=== PATIENT | female | born 1935 | race Caucasian/White ===

== ENCOUNTER 2017-07-30 14:45 | Outpatient (CLI) | payer MEDICARE ==
--- NOTE | 2017-07-30 16:08 | RAD ---
PA AND LATERAL CHEST: Date: 07/30/17 HISTORY: Dyspnea. COMPARISON: 10/24/16 study. FINDINGS: Heart size appears slightly enlarged. There are atherosclerotic changes of the aorta. It is mildly to rtuous. Lungs are clear of infiltrates. IMPRESSION: 1. Minimal cardiomegaly. 2. Osteoporosis and loss of vertebral body height of some of the lower thoracic vertebral bodies. 3. Overall stable exam. POS: [facility]
== END 2017-07-30 14:46 | disposition home or self-care (01) ==
LOC: RAD 14:45
PROVIDERS: ATTEND Internal Medicine Pulmonary Disease
DX: R06.00 Dyspnea, unspecified (principal); M81.0 Age-related osteoporosis without current pathological fracture
CPT/HCPCS: 71046

== ENCOUNTER 2019-01-19 11:36 | Outpatient (CLI) | payer MEDICARE ==
--- NOTE | 2019-01-19 11:56 | RAD ---
XR Chest Pa Lat @ [facility] HISTORY: Dyspnea COMPARISON: 01/07/2019, 01/04/2019 and 05/23/2018 studies. FINDINGS: Heart size is borderline. There are atherosclerotic changes of the aorta. Stable linear and nodular parenchymal change in the right mid and upper lung asif are again noted. IMPRESSION: Stable exam.
== END 2019-01-19 11:37 | disposition home or self-care (01) ==
LOC: RAD 11:36
PROVIDERS: ATTEND Internal Medicine Pulmonary Disease
DX: R06.00 Dyspnea, unspecified (principal)
CPT/HCPCS: 71046

== ENCOUNTER 2019-08-17 13:58 | Inpatient (IN) | payer MEDICARE ==
[~2019-08-17 13:58] MED LIST: Magnevist 469MG/ML 20 ML VIAL ONE
[2019-08-17] MEDS ORDERED: Dextrose 5% in Water 1,000 ML IV PRN (15:49)
[2019-08-17] MEDS ORDERED: Ondansetron ODT 4 MG TAB PO PRN (15:49)
[2019-08-17] MEDS ORDERED: hydrALAZINE 20 MG/ML VIAL SLOW IVP PRN (15:49)
[2019-08-17] MEDS ORDERED: Dextrose 50% Abboject 50 ML SYRINGE SLOW IVP PRN (15:49)
[2019-08-17] MEDS ORDERED: HumaLOG 300 UNITS/3 ML VIAL SC PRN (15:58)
[2019-08-17] MEDS ORDERED: Melatonin 3 MG TAB PO PRN (16:04)
[2019-08-17] MEDS ORDERED: hydrALAZINE 20 MG/ML VIAL ONE (16:11)
[2019-08-17] MEDS ORDERED: traMADol HCl 50 MG TAB PO PRN (16:12)
[2019-08-17] MEDS ORDERED: Acetaminophen 325 MG TAB PO SCH (16:15)
--- NOTE | 2019-08-17 17:34 | MRI ---
BRAIN MRI WITH AND WITHOUT CONTRAST: Date: 08/17/2019 HISTORY: Patient fell 4 days ago. Patient has an intraparenchymal hemorrhage. FINDINGS: There is associated hypointensity in the axial gradient echo sequence with regards to the intraparenc hymal hemorrhage in the right parietal region. There is associated intrinsic T1 heterogeneous hyperin tensity with T2 and FLAIR hyperintensity. There is heterogeneous restricted diffusion. Central arteri al flow-voids are maintained. With the exception of the region of hematoma, cortical bennett-white matter differentiation appears to b e preserved. There are scattered FLAIR and white matter hyperintensities due to chronic small vessel ischemic change. Overall, the degree of brain volume loss is in keeping with the patient's age. No hy drocephalus. There does appear to be subtle linear enhancement at the level of the hematoma which may represent po ssible normal cerebral vasculature. Adequate aeration of the sinuses and mastoid air cells. There is no pathologic enhancement of the brain parenchyma. There is no abnormal enhancement at the l evel of the hematoma. Underlying vascular lesion could easily be obscured for mass effect secondary t o parenchymal hematoma. IMPRESSION: 1. No pathologic enhancement of the brain parenchyma. 2. Resolving intraparenchymal hematoma in the right parietal lobe. No evidence of a definite underly ing vascular lesion. Repeat imaging after current hematoma resolves if clinically warranted. POS: [facility]
--- NOTE | 2019-08-17 18:08 | HP ---
REQUESTING PHYSICIAN: Dr. Rajeev Gonzalez. CONSULTING PHYSICIAN: Dr. Michael. ATTENDING PHYSICIAN: Dr. Kamara. HISTORY OF PRESENT ILLNESS: Ms. Garcia is 83-year-old female who presents to the ED via transfer from [place] with a chief complaint of cerebral contusion. The patient reports she tripped on her dog, fell on the right side her head, hit a concrete floor. She had a huge bump on her right frontal area. She did not have loss of consciousness. She was able to function okay after that. However, yesterday, the patient reports another episode of fall from a four step ladder and then she fell weakness of her left arm. 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 The patient also reports some bleeding from upper and lower extremities from skin abrasion after a fall yesterday. Upon arrival in the ED in our facility, the patient is alert and awake. GCS 15. Complained of headache and left upper extremity weakness. REVIEW OF SYSTEMS: Noncontributory except as per HPI. PAST MEDICAL HISTORY: Pertinent with hypertension. SURGICAL HISTORY: Bilateral knee replacements. SOCIAL HISTORY: The patient lives at home by herself. 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 The patient reports walking regularly every day a few miles a day. Denies drug use, denies smoking. The patient drinks every day, few drinks a day. PHYSICAL EXAMINATION: GENERAL: Currently the patient is lying in bed comfortable with no acute respiratory distress. The patient is alert and awake. GCS 15. Oriented x3. HEENT: There is skin abrasion of the right frontal area. No bleeding. Mild tenderness to palpation. Pupil 3 mm, equal bilaterally, reactive to light. NECK: Trachea midline, not tender to palpation. CHEST: Atraumatic, no bruising, not tender to palpation. LUNGS: Clear bilaterally. HEART: Regular rate and rhythm. ABDOMEN: Soft, nondistended. Bowel sounds active. No rebound. No guarding. EXTREMITIES: Left upper extremity weakness of the proximal area and care technician strength is normal. There are gross rash of the upper arm, stopped bleeding. There is forearm bruising. Gross sensory, the patient reports numbness of the left upper extremity, bilateral lower extremities and right upper extremity. Neurovascularly intact x3. NEUROLOGIC: Decreased sensation of left upper extremity. IMAGING: Initial workup show chest x-ray, no acute cardiopulmonary process. Pelvic x-ray, no fracture in the thigh. Brain CT scan, acute right hemispheric 2.5 cm contusion. LABORATORY DATA: White count 8.9, hemoglobin 14.9. Coagulation, INR 0.9. Chemistry: Sodium 141, potassium 4.2, creatinine 0.59, glucose 88. Urine is normal. ASSESSMENT: 1. Status post ground level fall. 2. Right cerebral contusion with left side weakness. 3. Soft tissue contusion of the left upper and left lower extremities and skin abrasion. 4. History of substance abuse, alcohol. 5. Hypertension. PLAN: The patient will be admitted to [facility] for pain control. Will be put on neuro check q.2 hours. Neurosurgery ordered MRI and repeat brain CT scan tomorrow. The patient will have a clear liquid diet for now. The patient will be put on alcohol withdrawal precaution. The patient was seen with Dr. Kamara at bedside. Job ID: [id number]
[2019-08-17] MEDS: Oxazepam 10 MG CAP PO SCH (20:09)
[2019-08-17] MEDS: Gabapentin 100 MG CAP PO SCH (20:10)
[2019-08-17] MEDS: hydrALAZINE 20 MG/ML VIAL SLOW IVP PRN (20:10)
[2019-08-17] MEDS: Senokot S 8.6-50 MG TAB PO SCH (20:10)
[2019-08-17 20:24] VITALS: BMI 22.5
--- NOTE | 2019-08-17 22:05 | CON ---
DATE OF CONSULTATION: HISTORY OF PRESENT ILLNESS: The patient is an 83-year-old female, who reports she is otherwise healthy other than a history of hypertension who presented as a transfer from [facility] for acute right-sided frontotemporal intracranial hemorrhage. The patient reports that last she had a mechanical fall after being tripped by her dog. She reports that she also had a fall yesterday and fall coming down off a ladder. She did not hit her head yesterday according to the patient. The patient reports that today she had some increased dizziness and some left upper extremity weakness, which prompted her visit to the [facility]. Upon arrival, she had a noncontrast CT head done, which is notable for an acute right frontotemporal intracranial hemorrhage, which radiologist feels it is consistent with contusional injury. The patient has signs of multiple contusions throughout the extremities and along the right forehead. She has minimal complaints at this time. 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 She denies history of any blood thinner use. PAST MEDICAL HISTORY: Hypertension. PAST SURGICAL HISTORY: Bilateral knee replacements. SOCIAL HISTORY: She lives at home alone. She does not smoke or use any drugs. She is a social drinker. ALLERGIES: SHE IS ALLERGIC TO SULFA. REVIEW OF SYSTEMS: Per HPI. PHYSICAL EXAMINATION: VITAL SIGNS: Blood pressure is 154/88, respirations 18, she is 98% on room air, temperature is 97.9, and pulse is 62. CONSTITUTIONAL: Awake, alert, in no acute distress. She is oriented x3. HEENT: Head; she has multiple abrasions along the right side of the face and forehead. Eyes; pupils are equal and reactive to light. Extraocular movements are intact. ENT; oral mucosa is pink, intact, and moist. She has normal voice. NECK: She has free active range of motion of the cervical spine. No meningismus or nuchal rigidity appreciated. RESPIRATORY: Symmetric chest expansion. No evidence of dyspnea. CARDIOVASCULAR: Regular rate and rhythm. MUSCULOSKELETAL: She has free active range of motion of all extremities. She is noted to have abrasions over both the bilateral upper and lower extremities. Peripheral pulses are intact. NEUROLOGIC: She is A and O x4. She is somewhat weak in the left upper extremity, particularly more over the proximal arm. She has good strength in the remainder of the extremities. ASSESSMENT AND PLAN: This is an 83-year-old female, who has had multiple recent falls, who had worsening dizziness today and some left upper extremity weakness and was found to have an acute right-sided frontotemporal intracranial hemorrhage. The radiologist feels this is likely contusional, however appearance is a bit atypical. She is somewhat hypertensive on arrival. We will work on getting this down with hypertensive medications, systolic blood pressure goal should be less than 150. We will evaluate her intracranial hemorrhage further with MRI of the brain with and without. We will follow these results closely. We will also monitor closely with q.2 neuro checks. I discussed this plan with Dr. Michael, who is in agreement. Job ID: [id number] MTDD
--- NOTE | 2019-08-18 01:24 | PRG ---
DATE OF SERVICE: 08/18/2019 SUBJECTIVE: The patient was admitted today status post reportedly having multiple falls over the last few days. She underwent evaluation, examination in [place], where it was noted that she had intracranial hemorrhage, at which time she was transferred to our facility for neurosurgical evaluation. Upon arrival, the patient reported left upper extremity weakness, but was otherwise doing well. At the time of my visit, the patient was awake, alert, conversant, and only complained of left upper extremity weakness. She stated her pain was controlled, though she was having some headache. PHYSICAL EXAMINATION: VITAL SIGNS: Stable. The patient is afebrile. The patient previously this afternoon was hypertensive, but is now 149/70. GENERAL: The patient is resting comfortably in bed. She is awake, alert, conversant, and appropriate. [place] Coma Scale is 15. HEENT: The patient has contusions to the right side of her forehead. Remainder of her HEENT is unremarkable. LUNGS: Clear to auscultation bilaterally. HEART: Regular rate and rhythm. ABDOMEN: Soft, flat, nontender with active bowel sounds. EXTREMITIES: Neurovascularly intact x4. Left upper extremity, the patient is tender to palpation to the left shoulder and humerus area. ASSESSMENT/PLAN: 1. Status post ground level fall with reported multiple falls over the previous few days. 2. Right cerebral contusion with left-sided weakness. 3. Soft-tissue contusion of left upper extremity, multiple skin abrasions. 4. History of substance abuse, alcohol. 5. History of hypertension. PLAN: Will be to continue supportive care. The patient currently has a repeat CT scheduled for 5 o'clock in the morning. We will also get shoulder and humerus x-rays at that time. Otherwise, we will continue with clear-liquid diet, serial exams, and discuss placement tomorrow after her exams. Job ID: [id number]
--- NOTE | 2019-08-18 07:07 | CT ---
PRELIMINARY REPORT/[facility]/EMERGENCY AFTER HOURS PROCEDURE: EXAM: CT Head, without Contrast DATE/ TIME: 08/18/2019, 2:25 AM INDICATION: Right frontotemporal contusion, follow-up TECHNIQUE: Axial CT imaging was performed through the head without intravenous administration of con trast. Exam was performed using one or more of the following dose reduction techniques: automated e xposure control, adjustment of the mA and/or kV according to patient size, or use of iterative recons truction technique. COMPARISON: CT Head 08/17/2019, 11:21 AM. FINDINGS: Focal hemorrhage (Hu = 59) measuring 2.9 x 1.6 cm is seen superiorly in the right hemisph ere at the junction of the frontoparietal brain. Hypoattenuation surrounding the hematoma is compati ble with a small amount of edema. The brain globally exhibits mild atrophy. There is no midline daylin ft. There is no hydrocephalus. Patchy periventricular white-matter hypoattenuation is seen; althoug h nonspecific this is most commonly related to the sequela of chronic small-vessel ischemia. Calcifi ed atheroma is seen within the cavernous portions of the internal carotid arteries compatible with in tracranial atherosclerotic vascular disease (ASVD). Imaging begins at the mid orbital level. Visual ized sinuses and mastoid air cells are clear. Soft tissue swelling in the right frontal and left pos terior parietal regions is seen. IMPRESSION: 1. Intraparenchymal hematoma within the right hemisphere with surrounding edema, as described. Find ings are statistically unchanged from the reference exam. 2. Extracranial soft tissue contusions. 3. Atrophy with chronic white-matter ischemic change in this 83-year-old with intracranial ASVD. ELECTRONICALLY SIGNED BY: Edmond Smith DO August 18, 2019 2:46:07 AM CDT This report is intended for review by the ordering physician only, in accordance of law. If you recei ve this report in error, please call [facility] at [phone]. FINAL REPORT EMERGENCY AFTER HOURS CT BRAIN WITHOUT CONTRAST: FINDINGS/IMPRESSION: I agree with the findings and impression given in the preliminary report per [facility] physici an. There is a stable parenchymal hemorrhage in the right frontal lobe. POS: [facility]
--- NOTE | 2019-08-18 07:55 | RAD ---
Exam:Left shoulder 3 views HISTORY: Fall. Pain. COMPARISON: None FINDINGS: Glenohumeral joint space is preserved. Mild degenerative change at the acromioclavicular vernon int space. No fracture or dislocation. Visualized left ribs and lung do not demonstrate posttraumatic change IMPRESSION: No fracture.
--- NOTE | 2019-08-18 07:56 | RAD ---
Exam:2 views left hip HISTORY: Fall. Pain. COMPARISON: None FINDINGS: No fracture, cortical irregularity or periosteal reaction. IMPRESSION: No fracture.
[2019-08-18] MEDS: Oxazepam 10 MG CAP PO SCH ×2 (08:48→20:01)
[2019-08-18] MEDS: Gabapentin 100 MG CAP PO SCH ×2 (08:49→20:01)
[2019-08-18] MEDS: Amlodipine 5 MG TAB PO SCH (08:49)
[2019-08-18] MEDS: Senokot S 8.6-50 MG TAB PO SCH ×2 (08:49→20:02)
[2019-08-18] MEDS: Polyethylene Glycol 3350 17 GM Packet PO SCH (08:50)
[2019-08-18] MEDS: Thiamine 100 MG TAB PO SCH (08:50)
[2019-08-18] MEDS: Folic Acid 1 MG TAB PO SCH (08:50)
[2019-08-18] MEDS ORDERED: Acetaminophen/Codeine 30-300mg Tablet PO PRN (09:30)
--- NOTE | 2019-08-18 10:56 | CON ---
DATE OF CONSULTATION: The patient was seen and examined. I agree with Daisy Farley's, evaluation on 08/17/2019. The patient is an 83-year-old woman, who has had several falls, most recently off the ladder and has sustained meaningful left-sided weakness particularly in the hand. CT and MRI have revealed a right frontal contusional hemorrhage in the region of the motor strip. MRI did not reveal any underlying lesion. IMPRESSION AND PLAN: The patient has a traumatic contusional hemorrhage causing left-sided motor deficit. This has been stable clinically and radiographically and she can be mobilized either dismissal or rehab. She will need ongoing occupational therapy and physical therapy. Repeat CT scan in 4 weeks is recommended and I would hold aspirin or any other anticoagulation until that time. Job ID: [id number]
[2019-08-18] MEDS: Acetaminophen 325 MG TAB PO SCH ×3 (12:50→20:02)
--- NOTE | 2019-08-18 13:44 | ULT ---
BILATERAL CAROTID DUPLEX ULTRASOUND: HISTORY: Multiple falls. Atherosclerotic vascular disease. TECHNIQUE: Arredondo scale ultrasound with color flow and spectral Doppler imaging of the extracranial carotid artery systems was performed bilaterally. There is plaque formation on either side. The peak systolic velocity in the right ICA measures 47 cm/s with an end-diastolic velocity of 11 cm/ s and a systolic ratio of 0.70. The peak systolic velocity in the left ICA measures 70 cm/s with an end-diastolic velocity of 20 cm/s and a systolic ratio of 0.96. Flow in both vertebral arteries remains antegrade. IMPRESSION: No evidence of hemodynamically significant stenosis. POS: [facility]
--- NOTE | 2019-08-18 14:14 | PRG ---
DATE OF SERVICE: 08/18/2019 SUBJECTIVE: Ms. Garcia is an 83-year-old otherwise highly functioning elderly woman who apparently has been falling over the last 6 months. According to family, the patient had fallen 7 times within the last 6 months. The patient denies any syncope, dyspnea, or chest pain. At this time, the patient apparently tripped on her dog and fell on her right side, striking her head. She denies any loss of consciousness. This incident occurred 2 days prior to this admission. However, the patient fell down again day before admission again without any loss of consciousness. She sustained soft tissue injuries, which were noticed by her caregiver who recommended evaluation in the emergency department. The patient was transported via ground EMS to [facility]. She arrives with a [place] Coma Scale of 15, complaining of headache and left upper extremity weakness. She otherwise moves all extremities and follows commands. Workup included CT scan of the brain, which revealed a 2.5-cm right parietal hemorrhagic contusion. The subsequent MRI of the brain confirmed the cerebral contusion. No evidence of neoplasm. The patient was admitted and has remained hemodynamically and neurologically stable. This morning, she denies any headaches. She has had intermittent nausea, but no emesis. She remains with a [place] Coma Scale of 15. Urinary output is adequate for the patient's age. OBJECTIVE: VITAL SIGNS: This morning include blood pressure 131/76, pulse 63, respiratory rate is 14, temperature 98 degrees Fahrenheit, and oxygen saturation 94% on room air. HEENT: Reveals superficial forehead abrasions. Otherwise, pupils equal, round, reactive to light and accommodation. She has no jugular venous distention noted. She has no cervical neck tenderness to palpation, active or passive range of motion. HEART: Reveals regular rate and rhythm. No murmurs or gallops auscultated. LUNGS: Clear to auscultation bilaterally. Breathing, regular and nonlabored. ABDOMEN: Soft, nontender, nondistended. EXTREMITIES: Reveal deep skin abrasions involving the left upper extremity as well as multiple superficial abrasions of the left greater than right lower extremity. NEUROLOGIC: Reveals no focal deficits present. MUSCULOSKELETAL: Reveals 5/5 muscle strength in right upper and bilateral lower extremities. Left upper extremity is 4/5. She has no sensory deficits present. DIAGNOSTIC STUDIES: Repeat CT scan of the brain this morning reveals a 2.9 x 1.6 cm right parietal hemorrhagic contusion with surrounding vasogenic edema. There is no midline shift present. IMPRESSION: 1. 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 2. Multiple recent falls, according to the patient's family, there is alcohol involved. However, we are uncertain as to any concomitant near syncopal etiology of these falls. PLAN: 1. Increase activity per Physical and Occupational Therapy. 2. We will obtain a duplex sonography of the carotid arteries as well as 2D echocardiography to rule out any cardiovascular disease. The patient will need inpatient rehabilitation post discharge from the hospital. Above findings and plan discussed with the patient who indicates understanding of information given. I have answered her questions. Job ID: [id number] MTDD
--- NOTE | 2019-08-19 00:31 | PRG ---
DATE OF SERVICE: 08/18/2019 SUBJECTIVE: The patient was seen during evening rounds. Awake, alert, in no distress, sitting up in the chair. The patient continues to tolerate a regular diet. The patient does have some bruising and pain to her left wrist and some decreased range of motion. The patient's hyperbaric technician strength is equal and strong. The patient was assisted back into the bed. OBJECTIVE: VITAL SIGNS: Blood pressure 122/84, temperature 97.9, pulse 68, respirations 16, SpO2 of 96% on room air. GENERAL: Elderly female, awake, alert, in no distress. LUNGS: Breathing is regular and nonlabored, no distress. ABDOMEN: Soft, nontender, nondistended. EXTREMITIES: Moves all extremities, multiple abrasions and skin tears to the left upper extremity and also right lower extremity. Distal pulses intact. Muscle strength 5/5 except for left upper extremity 4/5, left wrist pain and ecchymosis. NEUROLOGIC: No focal deficits. GCS 15. DIAGNOSTICS: 1. Carotid Doppler study; impression, no evidence of hemodynamically significant stenosis. 2. Echocardiogram; ejection fraction estimated at 55% to 60%, diastolic dysfunction, left atrium mildly dilated, mild mitral regurgitation present. Moderate aortic regurgitation. Mild tricuspid regurgitation. Mildly elevated pulmonary artery pressure. IMPRESSION: 1. Acute traumatic brain injury with right parietal hemorrhagic contusion and no neurologic deficit present. 2. Multiple recent falls. 3. Multiple skin abrasions and skin tears. 4. History of hypertension. 5. Alcohol abuse. PLAN: Increase activity per Physical and Occupational therapy. We will obtain a left wrist and elbow x-ray. Continue regular diet and pain regimen. The patient is pending placement to [facility]. My plan was discussed with the patient who agrees. Job ID: [id number]
[2019-08-19] MEDS: Acetaminophen 325 MG TAB PO SCH ×4 (04:56→20:23)
[2019-08-19 05:15] LABS: #Basophils 0.1 thou/uL (0.0-0.2); #Eosinphils 0.3 thou/uL (0.0-0.7); #Lymphocytes 2.3 thou/uL (1.20-3.40); #Monocytes 0.8 thou/uL (0.11-0.59); #Neutrophils 5.4 thou/uL (1.40-6.50); %Basophils 0.6 % (0.0-1.0); %Eosinophils 3.8 % (0.0-10.0); %Lymphocytes 25.7 % (21.0-51.0); %Monocytes 9.2 % (0.0-10.0); %Neutrophils 60.7 % (42.0-75.0); Hemoglobin 13.5 g/dL (12.0-16.0); Mean Corpuscular HGB CONC 31.7 g/dL (32.0-36.0); Mean Corpuscular Hemoglobin 32.7 pg (27.0-31.0); Mean Platelet Volume 6.6 fL (7.4-10.4); Platelet Count 273 thou/uL (130-400); RBC Distribution Width 12.2 % (11.5-14.5); Red Blood Cell (RBC) Count 4.11 mill/uL (4.20-5.40); White Blood Cell (WBC) Count 8.9 thou/uL (4.8-10.8)
[2019-08-19 05:36] LABS: Anion Gap 12 mmol/L (10-20); BUN (Urea Nitrogen) 12 mg/dL (9.8-20.1); Calc. Creatinine Clearance 62 mL/min (70-130); Calcium 8.4 mg/dL (7.8-10.44); Carbon Dioxide 21 mmol/L (23-31); Chloride 109 mmol/L (98-107); Estimated GFR-MDRD Greater than 90; Glucose 88 mg/dL (83-110); Phosphorus 4.2 mg/dL (2.3-4.7); Potassium 3.7 mmol/L (3.5-5.1); Sodium 138 mmol/L (136-145)
--- NOTE | 2019-08-19 07:21 | RAD ---
LEFT ELBOW 4 VIEWS: Date: 08/18/2019 HISTORY: Pain. COMPARISON: None. 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 No acute displaced fr acture or malalignment. No significant joint effusion. IMPRESSION: No acute osseous abnormality. POS: [facility]
--- NOTE | 2019-08-19 07:24 | RAD ---
LEFT WRIST 4 VIEWS: Date: 08/18/2019 HISTORY: Pain. COMPARISON: None. FINDINGS: On the lateral radiograph, there is a curvilinear calcification along the dorsal aspect of the distal radius. There is concern for a nondisplaced interarticular fracture of the radial styloid. High grade degenerative change of thumb carpometacarpal joint. There is scapholunate interval widenin g. There is a large wrist joint effusion. IMPRESSION: 1. Findings highly concerning for intra-articular fracture distal radius involving the radial styloi d process which is nondisplaced and extends to the scaphoid fossa. 2. Only seen on the lateral radiograph is a curvilinear calcification concerning for either an osseo us avulsion or ulnar styloid process versus a capsular avulsion. 3. Ossification of triangular fibrocartilage. 4. Chronic scapholunate ligament insufficiency with widening. POS: HOME
[2019-08-19] MEDS ORDERED: Potassium Chloride 20 MEQ TAB PO SCH (07:45)
[2019-08-19] MEDS: Polyethylene Glycol 3350 17 GM Packet PO SCH (07:58)
[2019-08-19] MEDS: Gabapentin 100 MG CAP PO SCH ×2 (07:59→20:23)
[2019-08-19] MEDS: Amlodipine 5 MG TAB PO SCH (07:59)
[2019-08-19] MEDS: Oxazepam 10 MG CAP PO SCH ×2 (07:59→20:23)
[2019-08-19] MEDS: Folic Acid 1 MG TAB PO SCH (07:59)
[2019-08-19] MEDS: Senokot S 8.6-50 MG TAB PO SCH ×2 (07:59→20:23)
[2019-08-19] MEDS: Thiamine 100 MG TAB PO SCH (07:59)
--- NOTE | 2019-08-19 10:55 | PRG ---
DATE OF SERVICE: 08/19/2019 SUBJECTIVE: The patient was seen this morning during rounds. Upon entering the room, the patient reported that her left upper extremity had significantly worsening function as well as sensation abilities. She reported she was very upset that she was not improving and actually getting worse. She is tolerating her diet and ambulating without difficulties, however, her motor sensation strength has greatly decreased from yesterday. She is not able to straighten her left upper extremity and has decreased automatic clipper and stripper strength of 3/5 from previous yesterday of 4/5. OBJECTIVE: VITAL SIGNS: Temperature 97.8, pulse 64, respirations 16, oxygen saturation 94% on room air, and blood pressure 159/74. GENERAL: Well-appearing elderly female, sitting up in bed with no signs of acute distress. PULMONARY: Equal chest rise and fall. Clear breath sounds bilaterally. No signs of acute respiratory distress. CARDIAC: Regular rate and rhythm. GI: Abdomen is soft, nontender, and nondistended. EXTREMITIES: 2+ pulses in all extremities. Gross motor and sensation intact to bilateral lower and right upper extremities. The patient has worsening decreased sensation in her left upper extremity extending from her shoulder down to her hand. She can feel deep touch, however, light sensation is more difficult. She has decreased range of motion in her shoulder. Left upper extremity strength is 3/5 from previous yesterday, 4/5. NEUROLOGIC: GCS is 15. The patient is oriented to person, place, time, and situation. Sensation, neuromuscular deficits in extremities. LABORATORY FINDINGS: White count 8.9, hemoglobin 13.5, hematocrit 43.4, and platelets 273. Sodium 138, potassium 3.7, chloride 109, bicarb 21, BUN 12, creatinine 0.59, and glucose 88. DIAGNOSTIC FINDINGS: X-ray of the left elbow demonstrates no acute osseous abnormalities. X-ray of the left wrist demonstrates finding highly concerning for intra-articular fracture distal radius involving the radial styloid process which is nondisplaced and extending into the scaphoid fossa only seen on the lateral radiograph is a curvilinear calcification concerning for either an osseous avulsion or an ulnar styloid process versus a capsular avulsion, ossification of triangular fibrocartilage, chronic scapholunate ligament insufficiency and with widening. ASSESSMENT: 1. Status post mechanical fall from fourth step of ladder. 2. Intraparenchymal hemorrhage of the right parietal lobe with left upper extremity worsening paresis and decreased sensation. 3. Abrasions to the left upper and lower extremity, status post wound care. 4. Left distal radius and ulnar fracture, nonoperative management. 5. History of hypertension and alcohol abuse. 6. Hypokalemia. PLAN: Continue current diet and pain regimen. Continue physical and occupational therapy. Continue Serax to prevent alcohol withdrawal. Continue home amlodipine for blood pressure control. After discussing with Dr. Kamara in Radiology, the worsening motor sensation in the left upper extremity is likely due to increased edema associated with the intraparenchymal hemorrhage in that parietal region, which is consistent with her dysfunction of the left upper extremity. Continue physical and occupational therapy, close management, close observation as well. The patient did receive also an echo and carotid ultrasound, which were unconcerning. We will also replace some potassium today. Orthopedic Surgery has evaluated the patient's left distal radius and ulnar fracture and recommend nonoperative management. This patient was seen and evaluated by Dr. Kamara and myself this morning during rounds. Job ID: [id number]
--- NOTE | 2019-08-19 13:22 | CON ---
DATE OF CONSULTATION: 08/19/2019 REQUESTING PHYSICIAN: Mohinder Kamara DO CONSULTING PHYSICIAN: Mandeep Ledbetter MD REASON FOR CONSULTATION: Possibility of left distal radius occult fracture. BRIEF CLINICAL HISTORY: Mary is an 83-year-old female, who was admitted by the Trauma team after she presented on August 16, after a fall from a ladder, which had followed a prior fall a couple of days later. She is a very independent 83-year-old lady[place] She presented to the emergency room in [place] with history of cerebral contusion and MRI of the brain was obtained, which demonstrated a right parietal lesion consistent with hematoma, and she was transferred to our facility for a neurosurgical evaluation. She had some weakness in the left upper extremity. Therefore, radiographs were obtained of the left wrist because she had some swelling there, but she did demonstrate essentially degenerative changes at the thumb MCP joint as well as osteoarthritic changes at the radiolunate joint as well. She has diminishment of joint space consistent with osteoarthritis and appropriate for age. Radiologist was concerned of a possible occult fracture in the distal radius and therefore our service was consulted for clinical examination. OBJECTIVE: Visual inspection of the left upper extremity demonstrates this lady has age-appropriate atrophy and significant bruises, which appear to be chronic on the dorsal forearm. She does have some swelling dorsally, which is nontender. She can supinate and pronate, but she has what appeared to be a neurological weakness of the left upper extremity. She has difficulty with the fine motor skills. Otherwise, no tenderness is reported with palpation along the distal radius both anteriorly and posteriorly. She can supinate, pronate, and wrist flexion-extension. She has no complaints of pain that is nonreproducible at the elbow or at the wrist. IMPRESSION: Osteoarthritis, left radioscaphoid joint space also metacarpophalangeal joint, left hand. Most of these changes noted on radiography are consistent with osteoarthritis. I do not see an occult fracture nor does clinical examination correlate to one. PLAN: At this point, we will sign off. No further intervention is required for the left upper extremity other than possibly a Neurology evaluation. No splinting or bracing is recommended at this point due to her delicate skin and re-consult as needed. Job ID: [id number]
--- NOTE | 2019-08-20 00:12 | PRG ---
DATE OF SERVICE: 08/19/2019 SUBJECTIVE: The patient was seen during evening rounds, awake, alert, in no distress sitting up in the chair. The patient states that she was able to walk with physical therapy, but feels like she is not progressing like she wants. The patient complains of less control and worsening function of her left upper extremity. The patient denies any pain at this time. The patient continues to tolerate a regular diet. OBJECTIVE: VITAL SIGNS: Temperature 97.4, pulse 64, respirations 16, SpO2 of 95% on room air, blood pressure 142/75. GENERAL: Well-appearing elderly female, sitting up in the chair, in no acute distress. PULMONARY: Respirations are even and nonlabored. EXTREMITIES: Moves all extremities. Distal pulses intact, ecchymosis to the left upper extremity, decreased sensation to the left upper extremity. NEUROLOGIC: GCS 15. ASSESSMENT: 1. Status post mechanical fall from the 4th step of a ladder. 2. Intraparenchymal hemorrhage of the right parietal lobe and left upper extremity, worsening paresis and decreased sensation. 3. Abrasions to the left upper arm and lower extremity, status post wound care. 4. Left distal radius and ulnar fracture, non operative management. 5. History of hypertension and alcohol abuse. 6. Hypokalemia. PLAN: Continue regular diet and pain regimen. Continue physical and occupational therapy. The patient is pending placement to [facility]. The plan was discussed with the patient who agrees. Job ID: [id number]
[2019-08-20] MEDS: Acetaminophen 325 MG TAB PO SCH ×2 (05:02→08:53)
[2019-08-20] MEDS: Polyethylene Glycol 3350 17 GM Packet PO SCH (07:51)
[2019-08-20] MEDS: Thiamine 100 MG TAB PO SCH (07:52)
[2019-08-20] MEDS: Senokot S 8.6-50 MG TAB PO SCH (07:52)
[2019-08-20] MEDS: Amlodipine 5 MG TAB PO SCH (07:52)
[2019-08-20] MEDS: Gabapentin 100 MG CAP PO SCH (07:52)
[2019-08-20] MEDS: Folic Acid 1 MG TAB PO SCH (07:52)
[2019-08-20] MEDS: Oxazepam 10 MG CAP PO SCH (07:52)
[2019-08-20] MEDS: hydrALAZINE 20 MG/ML VIAL SLOW IVP PRN (09:19)
[2019-08-20 12:20] VITALS: BP 109/67; TEMP 97.6
--- NOTE | 2019-08-20 16:35 | DIS ---
DATE OF ADMISSION: 08/17/2019 DATE OF DISCHARGE: 08/20/2019 ADMISSION DIAGNOSES: Mechanical fall from 4th step of a ladder, intraparenchymal hemorrhage of the right parietal lobe with left upper extremity paresis. DISCHARGE DIAGNOSES: Mechanical fall from 4th step of a ladder, intraparenchymal hemorrhage of the right parietal lobe with left upper extremity paresis and left distal radius and ulnar fracture. CONSULTING PHYSICIANS: Dr. Michael of Neurosurgery and Dr. Ledbetter of Orthopedic Surgery. PROCEDURES: None. HOSPITAL COURSE: The patient is an 83-year-old female, who presented to the emergency department after a mechanical fall from the 4th step of a ladder. The patient reported she had also fallen earlier in the week, ground level fall after the dog caused her to trip. Upon evaluation, she was found to have an intraparenchymal hemorrhage of the right parietal lobe with left upper extremity paresis. Dr. Michael of Neurosurgery was contacted, who completed an MRI of the brain and subsequently a repeat head CT, which demonstrated stable traumatic brain injury. The patient had persistent weakness of the left upper extremity. Furthermore, during her stay, her left upper extremity was imaged, which found a concern for left distal radius and ulnar fracture. Dr. Ledbetter of Orthopedic Surgery was consulted. They evaluated the patient. They reported a possible fracture at that location. They recommended conservative nonoperative management. They reported she does not need a splint. The patient worked with Physical and Occupational Therapy. She also received echo and carotid ultrasound, which demonstrated no significant dysfunction. She was discharged to [facility] for further physical, occupational, and speech-language pathology. The patient had abrasions to her left upper and lower extremity, for which Wound Care will see her. DISCHARGE DISPOSITION: [facility]. DISCHARGE CONDITION: Satisfactory. PHYSICAL EXAMINATION: VITAL SIGNS: Temperature 97.6, pulse 62, respirations 16, oxygen saturation 95% on room air, and blood pressure 176/76. GENERAL: Well-appearing elderly female, sitting up in bed with no signs of acute distress. PULMONARY: Equal chest rise and fall. Clear breath sounds bilaterally. No signs of acute respiratory distress. CARDIAC: Regular rate and rhythm. GASTROINTESTINAL: Soft, nontender, nondistended. EXTREMITIES: 2+ pulses in all extremities. Gross motor and sensation are intact in the bilateral lower and right upper extremity. She has decreased sensation and motor capability in her left upper extremity. She can feel deep sensation, but not light. Strength is about 3/5 in the left upper extremity. NEUROLOGIC: GCS is 15. DISCHARGE INSTRUCTIONS: The patient was discharged to [facility] swing bed. Activity as tolerated. Weightbearing as tolerated in all extremities. No splint needed for the left wrist. Regular diet. She will have PT, OT, speech-language pathology, and wound care. She received an incentive spirometer. DISCHARGE MEDICATIONS: Include, 1. Tylenol. 2. Tylenol 3. 3. Amlodipine. 4. Folic acid. 5. Gabapentin. 6. MiraLAX. 7. Senokot-S. 8. Thiamine. FOLLOWUP APPOINTMENTS: The patient has a followup appointment with Dr. Michael in 4 weeks. She is to complete a head CT before that followup. Hold all anticoagulation and aspirin. No followup is required for Dr. Ledbetter of Orthopedic Surgery. She can follow up with them p.r.n. No followup is indicated for Dr. Kamara in Trauma Clinic. This is a summary of the patient's hospitalization. For full details, please see her medical record in its entirety. This patient was seen and evaluated by Dr. Kamara and myself today at discharge. Job ID: [id number]
--- NOTE | 2019-08-21 09:56 | PQF ---
BR[place] POZO [place], [place] [id number] [facility] A [id number] CLINICAL DOCUMENTATION CLARIFICATION FORM: POST DISCHARGE Addendum to original discharge summary date: ____ Late entry note date: __ DATE:08/21/2019 ATTN: Elizabeth Ascencio Please exercise your independent, professional judgment in responding to the clarification form. Clinical indicators are provided on the bottom of this form for your review Please check appropriate box(s): [ X ] Traumatic Cerebral edema / Vasogenic edema [ ] Non-Traumatic Cerebral edema / Vasogenic edema [ ] Other diagnosis [ ] Unable to determine In addition, please specify: Present on Admission (POA): [ ] Yes [ ] No [ ] Unable to determine For continuity of documentation, please document condition throughout progress notes and discharge summary. Thank You. CLINICAL INDICATORS - SIGNS / SYMPTOMS / LABS GCS 15 CT brain impression: Intraparenchymal hematoma within the right hemisphere with surrounding edema H&P p1 08/16 Right cerebral contusion with left sided weakness H&P p1 08/16 Fall from ladder Consult p1 08/17 Dr Michael The pt has traumatic contusion hemorrhage causing left-sided motor deficit Consult p1 08/17 Dr Michael has sustained meaningful left-sided weakness particularly in the hand Consult p1 08/17 Dr Michaeltraumatic frontal hemorrhage RISK FACTORS H&P p1 08/16 83 year-old Female H&P p1 08/16 HTN H&P p1 08/16 history of substance abuse, alcohol H&P p1 08/16 Contusion of left upper and left lower extremities Consult p1 08/17 Dr Michaeltraumatic frontal hemorrhage H&P p1 08/16 s/p fall TREATMENTS: Brain MRI 08/16 CT brain 08/17 PT/OT 08/16 (This form is maintained as a part of the permanent medical record) 2014 [email or web address]. All Rights Reserved [email or web address]
== END 2019-08-20 15:04 | disposition swing bed (61) | DRG 86 ==
LOC: ERS 13:58 → SURG A 18:32
PROVIDERS: ADMIT Surgery; ATTEND Surgery
DX: S06.340A Traumatic hemorrhage of right cerebrum without loss of consciousness, initial encounter (principal); S52.502A Unspecified fracture of the lower end of left radius, initial encounter for closed fracture; S52.602A Unspecified fracture of lower end of left ulna, initial encounter for closed fracture; G83.24 Monoplegia of upper limb affecting left nondominant side; I10 Essential (primary) hypertension; Z96.653 Presence of artificial knee joint, bilateral; Z60.2 Problems related to living alone; S80.12XA Contusion of left lower leg, initial encounter; S40.022A Contusion of left upper arm, initial encounter; F10.10 Alcohol abuse, uncomplicated; E87.6 Hypokalemia; T14.8XXA Other injury of unspecified body region, initial encounter; M19.042 Primary osteoarthritis, left hand; R40.2362 Coma scale, best motor response, obeys commands, at arrival to emergency department; R40.2142 Coma scale, eyes open, spontaneous, at arrival to emergency department; R40.2252 Coma scale, best verbal response, oriented, at arrival to emergency department; Z88.2 Allergy status to sulfonamides; Z79.899 Other long term (current) drug therapy
CPT/HCPCS: 36415; 36416; 70450; 70553; 80048; 83735; 84100; 85025; 93306; 93880; 96374; A9579; G0390; J0360

== ENCOUNTER 2019-12-03 11:01 | Outpatient (CLI) | payer MEDICARE ==
--- NOTE | 2019-12-03 14:43 | PET ---
PET CT: 12/03/19 HISTORY: 84-year-old female with skin malignancy and mass in the right lung. TECHNIQUE: PET scan with CT attenuation correction was performed from the vertex through the feet following the intravenous administration of 10.6 millicuries of 15-fluorodeoxyglucose in the left antecubital fossa . COMPARISON: None. CORRELATION: CT scan of the chest dated 11/19/19. FINDINGS: No hypermetabolic activity is seen in the 2 cm right upper lobe lung nodule (SUV 1.7). No deena hypermetabolism is seen in the mediastinum, hilar regions, neck, left axilla, abdomen, pelvi s or mural regions. There is a 15 x 7 mm hypermetabolic right axillary lymph node with an SUV of 2.7. No hypermetabolic liver, adrenal, or skeletal lesions are seen. There is physiologic activity in the brain, heart, GI and tracts. The CT scan used for attenuation correction demonstrates no evidence of pleural effusions or ascites. There are postop changes of bilateral knee arthroplasties and colonic diverticulosis. IMPRESSION: 1. No evidence of hypermetabolic activity in the 2 cm right upper lobe lung nodule to suggest ma lignancy/metastatic disease. F/U CT scan is recommended in 3 months. 2. Nonspecific hypermetabolic right axillary lymph node. Possibility of metastatic disease andre ot be excluded. POS: TAO
== END 2019-12-03 11:02 | disposition home or self-care (01) ==
LOC: PET 11:01
PROVIDERS: ATTEND Family Medicine
DX: R91.8 Other nonspecific abnormal finding of lung field (principal); Z85.828 Personal history of other malignant neoplasm of skin
CPT/HCPCS: 78816; A9552

== ENCOUNTER 2020-01-07 12:54 | Outpatient (CLI) | payer MEDICARE ==
--- NOTE | 2020-01-07 13:31 | RAD ---
EXAM: Chest 2 views: HISTORY: Dyspnea COMPARISON: 11/13/2019 and PET/CT 12/03/2019 FINDINGS: There is a normal-sized cardiomediastinal silhouette. Scattered pulmonary nodules are seen in the rig ht lung. No acute osseous abnormality. IMPRESSION: Right-sided pulmonary nodules
== END 2020-01-07 12:55 | disposition home or self-care (01) ==
LOC: BICRAD 12:54
PROVIDERS: ATTEND Internal Medicine Pulmonary Disease
DX: R06.00 Dyspnea, unspecified (principal); R91.8 Other nonspecific abnormal finding of lung field
CPT/HCPCS: 71046

== ENCOUNTER 2020-06-20 14:13 | Emergency (ER) | payer MEDICARE ==
[2020-06-20 16:53] LABS: #Basophils 0.1 thou/uL (0.0-0.2); #Eosinphils 0.1 thou/uL (0.0-0.7); #Lymphocytes 2.9 thou/uL (1.20-3.40); #Monocytes 0.7 thou/uL (0.11-0.59); #Neutrophils 4.8 thou/uL (1.40-6.50); %Eosinophils 1.3 % (0.0-10.0); %Lymphocytes 33.9 % (21.0-51.0); %Monocytes 8.1 % (0.0-10.0); %Neutrophils 55.8 % (42.0-75.0); Hemoglobin 15.5 g/dL (12.0-16.0); Mean Corpuscular HGB CONC 34.1 g/dL (32.0-36.0); Mean Corpuscular Hemoglobin 34.2 pg (27.0-31.0); Mean Platelet Volume 6.1 fL (7.4-10.4); Platelet Count 319 thou/uL (130-400); RBC Distribution Width 13.1 % (11.5-14.5); Red Blood Cell (RBC) Count 4.52 mill/uL (4.20-5.40); White Blood Cell (WBC) Count 8.6 thou/uL (4.8-10.8)
[2020-06-20 17:19] LABS: ALT (SGPT) Less than 7 U/L (8-55); AST (SGOT) 15 U/L (5-34); Albumin 4.4 g/dL (3.4-4.8); Alkaline Phosphatase 111 U/L (40-110); Anion Gap 15 mmol/L (10-20); BUN (Urea Nitrogen) 10 mg/dL (9.8-20.1); Bilirubin, Total 0.6 mg/dL (0.2-1.2); Calc. Creatinine Clearance 0 mL/min (70-130); Calcium 9.2 mg/dL (7.8-10.44); Carbon Dioxide 25 mmol/L (23-31); Chloride 104 mmol/L (98-107); Globulin 2.7 g/dL (2.4-3.5); Glucose 83 mg/dL (83-110); Potassium 3.7 mmol/L (3.5-5.1); Protein, Total 7.1 g/dL (5.8-8.1); Sodium 140 mmol/L (136-145)
== END 2020-06-20 17:19 | disposition home or self-care (01) ==
LOC: ERS 14:13
DX: S80.812A Abrasion, left lower leg, initial encounter (principal); I10 Essential (primary) hypertension; X58.XXXA Exposure to other specified factors, initial encounter
CPT/HCPCS: 36415; 80053; 85025; 85379

== ENCOUNTER 2020-08-23 10:10 | Outpatient (CLI) | payer MEDICARE ==
[~2020-08-23 10:10] MED LIST changes: +Iopamidol-370 76% 500 ML 1 ML ONE; -Magnevist 469MG/ML 20 ML VIAL ONE
[2020-08-23 10:30] LABS: Estimated GFR-MDRD - POC Greater than 90
== END 2020-08-23 10:11 | disposition home or self-care (01) ==
LOC: BICCT 10:10
PROVIDERS: ATTEND Internal Medicine Pulmonary Disease
DX: R22.2 Localized swelling, mass and lump, trunk (principal); R91.8 Other nonspecific abnormal finding of lung field
CPT/HCPCS: 71260; 82565; Q9967

== ENCOUNTER 2021-02-27 12:00 | Outpatient (CLI) | payer MEDICARE | END 2021-02-27 12:01 | disposition home or self-care (01) | LOC: RAD 12:00 | PROVIDERS: ATTEND Internal Medicine Pulmonary Disease | DX: R06.00 Dyspnea, unspecified (principal); R91.8 Other nonspecific abnormal finding of lung field | CPT/HCPCS: 71046 ==

== ENCOUNTER 2021-08-31 13:34 | Emergency (ER) | payer MEDICARE ==
[2021-08-31] MEDS ORDERED: Acetaminophen/Codeine 30-300mg Tablet ONE (14:58)
== END 2021-08-31 15:24 | disposition home or self-care (01) ==
LOC: ERS 13:34
DX: S20.212A Contusion of left front wall of thorax, initial encounter (principal); I10 Essential (primary) hypertension; W18.2XXA Fall in (into) shower or empty bathtub, initial encounter
CPT/HCPCS: 71046; 93005

== ENCOUNTER 2021-10-19 15:57 | Outpatient (CLI) | payer MEDICARE | END 2021-10-19 15:58 | disposition home or self-care (01) | LOC: CT 15:57 | PROVIDERS: ATTEND Internal Medicine | DX: R91.1 Solitary pulmonary nodule (principal); R91.8 Other nonspecific abnormal finding of lung field | CPT/HCPCS: 71250 ==

== ENCOUNTER 2022-12-06 12:39 | Emergency (ER) | payer MEDICARE ==
[2022-12-06 14:49] LABS: #Basophils 0.1 thou/uL (0.0-0.2); #Eosinphils 0.1 thou/uL (0.0-0.7); #Neutrophils 8.8 thou/uL (1.40-6.50); %Basophils 0.5 % (0.0-1.0); %Eosinophils 0.8 % (0.0-10.0); %Monocytes 8.3 % (0.0-10.0); Hematocrit 47.1 % (36.0-47.0); Hemoglobin 15.5 g/dL (12.0-16.0); Mean Corpuscular HGB CONC 32.9 g/dL (32.0-36.0); Mean Corpuscular Hemoglobin 33.7 pg (27.0-31.0); Mean Corpuscular Volume 102.4 fl (78.0-98.0); Mean Platelet Volume 8.7 fL (7.4-10.4); Platelet Count 246 10x3/uL (130-400); RBC Distribution Width 12.9 % (11.5-14.5); White Blood Cell (WBC) Count 11.9 10x3/uL (4.8-10.8)
[2022-12-06] MEDS ORDERED: Rivaroxaban 15 MG TAB PO SCH (15:00)
[2022-12-06 15:14] LABS: ALT (SGPT) 7 U/L (8-55); AST (SGOT) 15 U/L (5-34); Albumin 4.4 g/dL (3.4-4.8); Alkaline Phosphatase 125 U/L (40-110); Anion Gap 16 mmol/L (10-20); BUN (Urea Nitrogen) 13 mg/dL (9.8-20.1); Bilirubin, Total 1.1 mg/dL (0.2-1.2); Calc. Creatinine Clearance 0 mL/min (70-130); Calcium 9.4 mg/dL (7.8-10.44); Carbon Dioxide 24 mmol/L (23-31); Chloride 99 mmol/L (98-107); Estimated GFR 76; Glucose 100 mg/dL (83-110); Protein, Total 7.4 g/dL (5.8-8.1); Sodium 135 mmol/L (136-145)
== END 2022-12-06 14:36 | disposition home or self-care (01) ==
LOC: ERS 12:39
DX: I82.402 Acute embolism and thrombosis of unspecified deep veins of left lower extremity (principal); I10 Essential (primary) hypertension; Z79.899 Other long term (current) drug therapy
CPT/HCPCS: 36415; 80053; 83880; 85025

== ENCOUNTER 2022-12-25 12:47 | Outpatient (CLI) | payer MEDICARE ==
[~2022-12-25 12:47] MED LIST changes: +Iopamidol 370 76% 100 ML VIAL ONE; -Iopamidol-370 76% 500 ML 1 ML ONE; +Magnevist 469MG/ML 20 ML VIAL ONE
== END 2022-12-25 12:48 | disposition home or self-care (01) ==
LOC: CT 12:47
PROVIDERS: ATTEND Internal Medicine
DX: C34.11 Malignant neoplasm of upper lobe, right bronchus or lung (principal); R93.89 Abnormal findings on diagnostic imaging of other specified body structures
CPT/HCPCS: 70553; 71275; 82565; A9579; Q9967

== ENCOUNTER 2023-01-11 11:50 | Inpatient (IN) | payer MEDICARE ==
[2023-01-11] MEDS ORDERED: Cefepime 2 GM VIAL ONE (12:17)
[2023-01-11] MEDS ORDERED: Acetaminophen 500 MG TAB ONE (12:17)
[2023-01-11] MEDS ORDERED: Vancomycin HCl 750 MG in Sodium Chloride 0.9% 250 ML 250 ML IVPB SCH (13:00)
[2023-01-11 13:14] LABS: #Monocytes 0.7 thou/uL (0.11-0.59); #Neutrophils 17.9 thou/uL (1.40-6.50); %Basophils 0.2 % (0.0-1.0); %Eosinophils 0.2 % (0.0-10.0); %Lymphocytes 4.6 % (21.0-51.0); %Monocytes 3.7 % (0.0-10.0); %Neutrophils 90.4 % (42.0-75.0); Hematocrit 38.5 % (36.0-47.0); Hemoglobin 12.9 g/dL (12.0-16.0); Mean Corpuscular HGB CONC 33.5 g/dL (32.0-36.0); Mean Corpuscular Hemoglobin 32.8 pg (27.0-31.0); Mean Platelet Volume 8.7 fL (7.4-10.4); Platelet Count 276 10x3/uL (130-400); Red Blood Cell (RBC) Count 3.93 mill/uL (4.20-5.40); White Blood Cell (WBC) Count 19.8 10x3/uL (4.8-10.8)
[2023-01-11 13:36] LABS: ALT (SGPT) 8 U/L (8-55); AST (SGOT) 17 U/L (5-34); Albumin 3.7 g/dL (3.4-4.8); Alkaline Phosphatase 113 U/L (40-110); Anion Gap 12 mmol/L (10-20); BUN (Urea Nitrogen) 10 mg/dL (9.8-20.1); Bilirubin, Total 0.8 mg/dL (0.2-1.2); Calc. Creatinine Clearance 0 mL/min (70-130); Calcium 8.5 mg/dL (7.8-10.44); Carbon Dioxide 21 mmol/L (23-31); Chloride 105 mmol/L (98-107); Estimated GFR 87; Globulin 2.6 g/dL (2.4-3.5); Glucose 122 mg/dL (83-110); Potassium 3.4 mmol/L (3.5-5.1); Protein, Total 6.3 g/dL (5.8-8.1); Sodium 135 mmol/L (136-145)
[2023-01-11] MEDS ORDERED: Senokot S 8.6-50 MG TAB PO PRN (15:20)
[2023-01-11] MEDS: HYDROcodone/Acetaminophen 5/325 mg Tablet PO PRN ×2 (16:49→23:03)
[2023-01-11] MEDS: Rivaroxaban 10 MG TAB PO SCH (16:49)
[2023-01-11 16:52] VITALS: BMI 20.8
[2023-01-12] MEDS: HYDROcodone/Acetaminophen 5/325 mg Tablet PO PRN ×2 (03:56→10:36)
[2023-01-12 06:39] LABS: #Eosinphils 0.1 thou/uL (0.0-0.7); #Monocytes 0.4 thou/uL (0.11-0.59); #Neutrophils 11.4 thou/uL (1.40-6.50); %Basophils 0.3 % (0.0-1.0); %Eosinophils 0.5 % (0.0-10.0); %Lymphocytes 6.3 % (21.0-51.0); %Monocytes 3.4 % (0.0-10.0); Hemoglobin 11.5 g/dL (12.0-16.0); Mean Corpuscular HGB CONC 32.9 g/dL (32.0-36.0); Mean Corpuscular Hemoglobin 33.3 pg (27.0-31.0); Mean Platelet Volume 8.8 fL (7.4-10.4); Platelet Count 241 10x3/uL (130-400); RBC Distribution Width 13.1 % (11.5-14.5); Red Blood Cell (RBC) Count 3.45 mill/uL (4.20-5.40); White Blood Cell (WBC) Count 12.8 10x3/uL (4.8-10.8)
[2023-01-12 06:41] LABS: Mean Corpuscular Volume 101.4 fl (78.0-98.0)
[2023-01-12 07:08] LABS: Anion Gap 12 mmol/L (10-20); BUN (Urea Nitrogen) 14 mg/dL (9.8-20.1); Calc. Creatinine Clearance 46 mL/min (70-130); Calcium 8.3 mg/dL (7.8-10.44); Carbon Dioxide 20 mmol/L (23-31); Chloride 107 mmol/L (98-107); Estimated GFR 83; Glucose 100 mg/dL (83-110); Potassium 3.5 mmol/L (3.5-5.1); Sodium 135 mmol/L (136-145)
[2023-01-12] MEDS: Ondansetron ODT 4 MG TAB PO PRN ×2 (10:40→15:33)
[2023-01-12] MEDS ORDERED: Vancomycin HCl 750 MG in Sodium Chloride 0.9% 250 ML 250 ML IVPB SCH (13:00)
[2023-01-12] MEDS ORDERED: Piperacillin/Tazobactam 3.375 GM in Sodium Chloride 0.9% 100 ML IVPB SCH (13:45)
[2023-01-12] MEDS ORDERED: Iopamidol-370 76% 500 ML MDV (1 ML CHARGE) ONE (16:24)
[2023-01-12] MEDS: Rivaroxaban 10 MG TAB PO SCH (16:59)
[2023-01-12] MEDS: Piperacillin/Tazobactam 3.375 GM in Sodium Chloride 0.9% 100 ML IVPB SCH (17:49)
[2023-01-12] MEDS ORDERED: Acetaminophen 325 MG TAB PO SCH (22:00)
[2023-01-12] MEDS ORDERED: Melatonin 3 MG TAB PO SCH (22:00)
[2023-01-13] MEDS: Piperacillin/Tazobactam 3.375 GM in Sodium Chloride 0.9% 100 ML IVPB SCH ×3 (02:53→17:25)
[2023-01-13 06:43] LABS: #Eosinphils 0.3 thou/uL (0.0-0.7); #Monocytes 0.8 thou/uL (0.11-0.59); #Neutrophils 8.4 thou/uL (1.40-6.50); %Basophils 0.4 % (0.0-1.0); %Eosinophils 2.3 % (0.0-10.0); %Lymphocytes 13.9 % (21.0-51.0); %Monocytes 7.3 % (0.0-10.0); %Neutrophils 75.7 % (42.0-75.0); Hemoglobin 11.4 g/dL (12.0-16.0); Mean Corpuscular HGB CONC 32.6 g/dL (32.0-36.0); Mean Corpuscular Hemoglobin 33.2 pg (27.0-31.0); Mean Platelet Volume 8.8 fL (7.4-10.4); Platelet Count 253 10x3/uL (130-400); RBC Distribution Width 13.2 % (11.5-14.5); Red Blood Cell (RBC) Count 3.43 mill/uL (4.20-5.40)
[2023-01-13 07:00] LABS: Anion Gap 14 mmol/L (10-20); BUN (Urea Nitrogen) 10 mg/dL (9.8-20.1); CRP (Inflammatory) 15.16 mg/dL (= or < 0.5); Calc. Creatinine Clearance 57 mL/min (70-130); Calcium 8.1 mg/dL (7.8-10.44); Carbon Dioxide 20 mmol/L (23-31); Chloride 106 mmol/L (98-107); Estimated GFR 88; Glucose 93 mg/dL (83-110); Potassium 3.1 mmol/L (3.5-5.1); Sodium 137 mmol/L (136-145)
[2023-01-13 12:22] LABS: Vancomycin, Trough 3.4 ug/mL
[2023-01-13] MEDS ORDERED: Vancomycin HCl 750 MG in Sodium Chloride 0.9% 250 ML 250 ML IVPB SCH (13:00)
[2023-01-13] MEDS: Rivaroxaban 10 MG TAB PO SCH (16:42)
[2023-01-13] MEDS: HYDROcodone/Acetaminophen 5/325 mg Tablet PO PRN (20:54)
[2023-01-14] MEDS: Melatonin 3 MG TAB PO PRN ×2 (00:41→22:51)
[2023-01-14] MEDS: Piperacillin/Tazobactam 3.375 GM in Sodium Chloride 0.9% 100 ML IVPB SCH ×3 (01:11→17:49)
[2023-01-14] MEDS: HYDROcodone/Acetaminophen 5/325 mg Tablet PO PRN ×3 (09:55→20:21)
[2023-01-14] MEDS ORDERED: Iopamidol-370 76% 500 ML MDV (1 ML CHARGE) ONE (11:14)
[2023-01-14] MEDS ORDERED: Amlodipine 10 MG TAB PO SCH (14:30)
[2023-01-14] MEDS: Rivaroxaban 10 MG TAB PO SCH (17:49)
[2023-01-15] MEDS: Piperacillin/Tazobactam 3.375 GM in Sodium Chloride 0.9% 100 ML IVPB SCH ×3 (02:55→17:16)
[2023-01-15] MEDS: HYDROcodone/Acetaminophen 5/325 mg Tablet PO PRN ×3 (04:02→20:12)
[2023-01-15 06:23] LABS: #Basophils 0.1 thou/uL (0.0-0.2); #Eosinphils 0.4 thou/uL (0.0-0.7); #Monocytes 0.9 thou/uL (0.11-0.59); #Neutrophils 6.2 thou/uL (1.40-6.50); %Basophils 0.5 % (0.0-1.0); %Eosinophils 4.4 % (0.0-10.0); %Lymphocytes 24.3 % (21.0-51.0); %Monocytes 8.6 % (0.0-10.0); %Neutrophils 61.7 % (42.0-75.0); Hematocrit 36.5 % (36.0-47.0); Mean Corpuscular HGB CONC 32.9 g/dL (32.0-36.0); Mean Corpuscular Hemoglobin 32.4 pg (27.0-31.0); Mean Corpuscular Volume 98.6 fl (78.0-98.0); Mean Platelet Volume 8.6 fL (7.4-10.4); Platelet Count 340 10x3/uL (130-400); RBC Distribution Width 12.9 % (11.5-14.5); White Blood Cell (WBC) Count 10.1 10x3/uL (4.8-10.8)
[2023-01-15 07:30] LABS: Chloride 106 mmol/L (98-107); Potassium 3.4 mmol/L (3.5-5.1); Sodium 138 mmol/L (136-145)
[2023-01-15 07:31] LABS: Anion Gap 12 mmol/L (10-20); BUN (Urea Nitrogen) 7 mg/dL (9.8-20.1); Calc. Creatinine Clearance 49 mL/min (70-130); Calcium 8.8 mg/dL (7.8-10.44); Carbon Dioxide 23 mmol/L (23-31); Estimated GFR 85; Glucose 96 mg/dL (83-110)
[2023-01-15] MEDS: Amlodipine 10 MG TAB PO SCH (09:13)
[2023-01-15] MEDS: Rivaroxaban 10 MG TAB PO SCH (17:16)
[2023-01-16] MEDS: Piperacillin/Tazobactam 3.375 GM in Sodium Chloride 0.9% 100 ML IVPB SCH ×2 (01:27→08:29)
[2023-01-16] MEDS: HYDROcodone/Acetaminophen 5/325 mg Tablet PO PRN (03:40)
[2023-01-16] MEDS: Amlodipine 10 MG TAB PO SCH (08:29)
[2023-01-16 09:50] VITALS: BP 163/51; TEMP 97.4
== END 2023-01-16 14:07 | disposition home or self-care (01) | DRG 872 ==
LOC: SUATTDRO 11:50 → ERS 11:50 → T4-B 14:56
PROVIDERS: ADMIT Family Medicine; ATTEND Hospitalist
DX: A41.9 Sepsis, unspecified organism (principal); L03.116 Cellulitis of left lower limb; L97.929 Non-pressure chronic ulcer of unspecified part of left lower leg with unspecified severity; I10 Essential (primary) hypertension; Z96.653 Presence of artificial knee joint, bilateral; Z66 Do not resuscitate; R09.02 Hypoxemia; Z98.890 Other specified postprocedural states; Z88.2 Allergy status to sulfonamides; Z86.718 Personal history of other venous thrombosis and embolism; Z79.01 Long term (current) use of anticoagulants; Z79.899 Other long term (current) drug therapy
CPT/HCPCS: 36415; 71045; 71275; 80048; 80053; 80202; 83605; 85025; 86140; 87040; 87077; 87149; 93005; 96365; 96367; 97139; J0692; J2543; J3370; J3490; J7050; Q0162; Q9967